=== PATIENT | female | born 1985 | race Caucasian/White ===

== ENCOUNTER 2017-03-15 20:33 | Emergency (ER) | payer OTHER ==
[2017-03-15 20:40] VITALS: RESP 16
[2017-03-15] MEDS ORDERED: NS 1,000 ML IV ONE (21:00)
[2017-03-15] MEDS ORDERED: ACETAMINOPHEN 500 MG TAB PO ONE (21:09)
[2017-03-15 21:19] VITALS: TEMP 98.8
--- NOTE | 2017-03-15 21:32 | EDPHY ---
H & P Time Seen by Provider: 03/15/17 20:47 HPI/ROS: CHIEF COMPLAINT: Possible pyelonephritis HISTORY OF PRESENT ILLNESS: 31-year-old female who reports 4 days ago she developed UTI type symptoms with dysuria and frequency. She also noted mild back pain especially on the right. She was seen by primary care physician today with ongoing pain and dysuria. Patient was diagnosis possibly having early pyelonephritis versus urinary tract infection was given ciprofloxacin and instructions regarding fluid, ibuprofen, and antibiotics. Her urinalysis did demonstrate 50-182 WBCs per high-power field along with 3+ leukocyte esterase and small amount of blood. Patient took her 1st dose of ciprofloxacin at 4:00 p.m.. This evening, she began to develop body aches, headache, and fever. She did not take ibuprofen. When her came home, they contacted the primary care physician again reported temperature of a greater than 103. They are advised come to the emergency department. Prior to coming the patient did take 600 mg of ibuprofen. On arrival this evening, she reports feeling markedly improved. She has only low-grade fever, heart rate of 103, and no nausea. Patient does report nausea and 1 episode of vomiting over the weekend. REVIEW OF SYSTEMS: Aside from elements discussed in the HPI, a comprehensive 10-point review of systems was reviewed and is negative. PAST MEDICAL HISTORY: Denies. On oral contraceptives SOCIAL HISTORY: Here with her . Nonsmoker. VITAL SIGNS Reviewed by me. GENERAL: Well-developed, well-nourished, resting comfortably in no respiratory distress. HEENT: Atraumatic. Eyes: No icterus, no injection. Mouth: Slightly dry mucous membranes. No erythema or lesions. Neck: supple with no adenopathy. LUNGS: Clear to auscultation bilaterally, no wheezes, rhonchi or rales. CARDIAC: Regular rate and rhythm, no rubs, murmurs or gallops. ABDOMEN: Soft, nontender, nondistended, bowel sounds normal. BACK: very mild right CVA tenderness. EXTREMITIES: No trauma. No edema. Range of motion is normal throughout. NEURO: Alert and oriented, grossly nonfocal. SKIN: Warm and dry, no rash. PSYCHIATRIC: Normal mentation, no agitation. Smoking Status: Never smoked Constitutional: Initial Vital Signs Temperature (C) 37.4 C 03/15/17 20:36 Heart Rate 102 H 03/15/17 20:36 Respiratory Rate 16 03/15/17 20:36 Blood Pressure 100/68 03/15/17 20:36 O2 Sat (%) 95 03/15/17 20:36 O2 Delivery Mode Room Air Allergies/Adverse Reactions: No Known Allergies Allergy (Unverified 03/10/15 01:03 MDT) Home Medications: Medication Instructions Recorded Cipro 03/15/17 Loestrin Fe 1.5-30 Tablet 03/15/17 Medical Decision Making ED Course/Re-evaluation: With patient's history of fever, tachycardia, as well as with her flank pain, I believe she has pyelonephritis. I offered the patient further evaluation and treatment while in the emergency department to include IV fluids, blood work to evaluate BUN and creatinine, additional antibiotics if warranted, and pain medications. She reports that she feels much improved after taking the ibuprofen at home and would like to discharged with no further evaluation. She understands the importance of ciprofloxacin, Tylenol, ibuprofen, and fluid intake. Please see the discharge instructions. Differential Diagnosis: Differential diagnosis of the patient's flank pain was considered including but not limited to musculoskeletal causes, kidney stone, pyelonephritis, shingles, and intra-abdominal causes such as diverticulitis and appendicitis. - Data Points Medications Given: Discontinued Medications Acetaminophen (Tylenol) 1,000 mg PO EDNOW ONE Stop: 03/15/17 21:10 Last Admin: 03/15/17 21:13 Dose: 1,000 mg Sodium Chloride (Ns) 1,000 mls @ 0 mls/hr IV ONCE ONE; Wide Open PRN Reason: Protocol Stop: 03/15/17 21:01 Last Admin: 03/15/17 21:36 Dose: Not Given Departure - Departure Disposition: Home, Routine, Self-Care Clinical Impression: Pyelonephritis Condition: Good Instructions: Urinary Tract Infection in Women (ED), Kidney Infection (ED) Additional Instructions: Mainstay of therapy is to take the antibiotics as directed, drink plenty of fluid, control your fever and body aches with Tylenol and ibuprofen. Continue to take your ciprofloxacin as directed I recommend Ibuprofen (Motrin, Advil) for pain and anti-inflammatory effects. You may take either one, but do not take both. Your dose is: Ibuprofen 600 mg every 6-8 hours with food. You may take Tylenol 650-1000 mg every 4 hours in addition to taking ibuprofen for severe fever or body aches. Drink plenty of fluid. If you're not improving as expected in the next 24-36 hours, please return to the emergency department or contact your primary care physician. Your culture results will be available and 36-48 hours. If you developed nausea, vomiting, inability to control your fever, worsening back pain, or other significant concerns, please return to the emergency department. Referrals: Mercedes Stewart MD [Primary Care Provider] - As per Instructions
[2017-03-15 21:59] VITALS: O2SAT 95
[2017-03-15 22:00] VITALS: BP 102/75
[2017-03-15 22:06] VITALS: PULSE 97
== END 2017-03-15 21:45 | disposition home or self-care (01) ==
DX: N12 Tubulo-interstitial nephritis, not specified as acute or chronic (principal)

== ENCOUNTER → 2017-03-18 | Outpatient (CLI) | payer OTHER | LOC: BMCIMAGING 08:03 | PROVIDERS: ATTEND Internal Medicine | DX: K59.00 Constipation, unspecified (principal); I87.8 Other specified disorders of veins ==

== ENCOUNTER → 2018-04-21 | Outpatient (CLI) | payer OTHER | LOC: FLACT 09:17 | DX: Z39.1 Encounter for care and examination of lactating mother (principal) | CPT/HCPCS: G0463 ==

== ENCOUNTER → 2018-07-14 | Outpatient (CLI) | payer OTHER | LOC: FLAB 12:14 → FLACT 12:14 → EDSTATUS 12:16 | DX: Z39.1 Encounter for care and examination of lactating mother (principal) | CPT/HCPCS: G0463 ==